=== PATIENT | male | born 1995 | race Asian ===

== ENCOUNTER 2022-12-25 01:41 | Emergency (ER) | payer OTHER ==
[~2022-12-25] VITALS: Ht 177.8 cm; Wt 83.0 kg
--- NOTE | 2022-12-25 01:54 | NUR ---
Patient BIB [facility] from home for c/o swallowing tooth cap.
--- NOTE | 2022-12-25 01:55 | NUR ---
Dr. Nickerson at bedside for MSE.
[2022-12-25 02:16] VITALS: BP 120/77
--- NOTE | 2022-12-25 02:16 | NUR ---
Patient discharged to home in stable condition. Written and verbal after care instructions given. Patient verbalizes understanding of instructions. Stressed follow up or return to ER for worsening s/s. Patient ambulated out of the ER with steady gait. All belongings with patient.
== END 2022-12-25 02:16 | disposition home or self-care (01) ==
LOC: ER 01:41
DX: T18.108A Unspecified foreign body in esophagus causing other injury, initial encounter (principal); Z88.8 Allergy status to other drugs, medicaments and biological substances; Z88.1 Allergy status to other antibiotic agents; X58.XXXA Exposure to other specified factors, initial encounter; Y93.89 Activity, other specified; Y92.89 Other specified places as the place of occurrence of the external cause; Y99.8 Other external cause status
CPT/HCPCS: 71045; 74018; A4663